=== PATIENT | male | born 1945 | race Caucasian/White ===

== ENCOUNTER 2021-03-18 19:25 | Emergency (ER) | payer OTHER ==
[~2021-03-18] VITALS: Ht 177.8 cm; Wt 94.8 kg
[~2021-03-18 19:25] MED LIST: ASPIRIN81 MG PO; CIPRO500 MG PO; GLIPIZIDE5 MG PO; HCTZ/LISINOPRIL1 TA2 PO; LISINOPRIL5 MG PO; LOMOTIL 0.025 M1 TAB PO; METFORMIN500 MG PO; PROCTOCREAM-HC2.5% TP; SIMVASTATIN20 MG PO
[2021-03-18] MEDS ORDERED: PIOGLITAZONE HC15 MG PO (19:47)
[2021-03-18] MEDS ORDERED: ZESTRIL10 MG PO (19:48)
[2021-03-18] MEDS ORDERED: METFORMIN HYDR500 MG PO (19:49)
[2021-03-18] MEDS ORDERED: PRAVASTATIN SOD40 MG PO (19:49)
[2021-03-18] MEDS ORDERED: PRESERVISION A1 EAC3 PO (19:50)
== END 2021-03-18 22:00 ==
LOC: ED 19:28
DX: I46.9 Cardiac arrest, cause unspecified (principal); Z79.899 Other long term (current) drug therapy